=== PATIENT | male | born 1950 | race Caucasian/White ===

== ENCOUNTER → 2016-07-10 | Outpatient (CLI) | payer MEDICARE, OTHER ==
[~2016-07-10] MED LIST: HYDROCODONE1 TABLET PO; MEDROL 4MG. DOSE4 MG PO; VALIUM2 MG PO
[2016-07-10 12:54] LABS: LYMPH # 1.1 K/mm3 (0.7-4.5); LYMPH % 15.7 % (10-50)
[2016-07-10 15:02] LABS: BUN 21 mg/dL (7-18); GFR (ESTIMATED) 67 ML/MIN (>60)
--- NOTE | 2016-07-10 15:32 | RADIOLOGY REPORT PS360 ---
CHEST(2 VIEWS-NOT PORTABLE) HISTORY: DYSPNEA ON EXERTION, COUGH ORDERING PHYSICIAN: Jackie Tompkins APRN PATIENT AGE: 66 years COMPARISON: 01/30/2010 FINDINGS: The heart size is unremarkable. There are atelectatic changes in the lung bases. An external subcutaneous fibular device is noted over the sternum with the power pack over the left chest wall. No acute bony anomalies. IMPRESSION: 1. Lateral lower lobe atelectasis. 2. Cardiac defibrillator device in place
== END ==
LOC: LAB 12:36
PROVIDERS: Nurse Practitioner Family
DX: R06.09 Other forms of dyspnea (principal); L74.519 Primary focal hyperhidrosis, unspecified; R05 Cough; R53.83 Other fatigue; R53.81 Other malaise; I10 Essential (primary) hypertension; I25.10 Atherosclerotic heart disease of native coronary artery without angina pectoris